=== PATIENT | female | born 1975 | race Caucasian/White ===

== ENCOUNTER 2018-06-10 19:02 | Inpatient (IN) | payer OTHER ==
[2018-06-10] MEDS ORDERED: ONDANSETRON 4 MG INJ IV (22:30)
[2018-06-10] MEDS ORDERED: morphine 2 MG INJ IV (22:30)
[2018-06-10] MEDS: PIPER-TAZO 3.375 GM IV (PMX) 100 ML IVPB (23:51)
[2018-06-10] MEDS: NACL 0.9% 3 ML SYG IV (23:51)
[2018-06-10] MEDS: DEXTROSE 5%-0.45% NACL 1,000 ML IV (23:51)
[2018-06-11 05:18] LABS: ADD MAN DIFF? NO
[2018-06-11 05:22] LABS: WHITE BLOOD COUNT 14.4 10^3/ul (4.8-10.8)
[2018-06-11 05:22] LABS: BASOPHIL # 0.1 10^3/ul (0.0-0.1); BASOPHILS % 0.3 % (0.0-2.0); EOSINOPHILS # 0.1 10^3/ul (0.0-0.5); EOSINOPHILS % 0.6 % (0.0-7.0); HEMATOCRIT 36.6 % (37.0-47.0); LYMPHOCYTES # 2.1 10^3/ul (0.8-2.9); LYMPHOCYTES % 14.8 % (15.0-51.0); MEAN CORPUSCULAR HEMOGLOBIN 27.3 pg (29.0-33.0); MEAN CORPUSCULAR HGB CONC 32.8 g/dl (32.0-37.0); MEAN CORPUSCULAR VOLUME 83.2 fl (82.0-101.0); MEAN PLATELET VOLUME 11.8 fl (7.4-10.4); MONOCYTE # 0.8 10^3/ul (0.3-0.9); MONOCYTES % 5.7 % (0.0-11.0); NEUTROPHIL # 11.2 10^3/ul (1.6-7.5); PLATELET COUNT 260 10^3/UL (140-415); RED CELL DISTRIBUTION WIDTH 13.2 % (11.5-14.5)
[2018-06-11] MEDS ORDERED: DEXTROSE 50% 50 ML SYRINGE IV ×2 (05:30)
[2018-06-11] MEDS ORDERED: GLUCOSE GEL 15 GRAM TUBE BUCCAL (05:30)
[2018-06-11] MEDS ORDERED: GLUCAGON 1 MG INJ IM (05:30)
[2018-06-11] MEDS ORDERED: GLUCOSE GEL 15 GRAM TUBE PO ×2 (05:30)
[2018-06-11 05:48] LABS: ALANINE AMINOTRANSFERASE 20 IU/L (13-69); ALBUMIN 3.8 g/dl (3.3-4.9); ALBUMIN/GLOBULIN RATIO 1.18; ALKALINE PHOSPHATASE 84 IU/L (42-121); ANION GAP 14 (5-13); ASPARTATE AMINO TRANSFERASE 15 IU/L (15-46); BILIRUBIN,INDIRECT 0.5 mg/dl (0-1.1); BILIRUBIN,TOTAL 0.5 mg/dl (0.2-1.3); BLOOD UREA NITROGEN 9 mg/dl (7-20); CALCIUM 8.8 mg/dl (8.4-10.2); CARBON DIOXIDE 24 mmol/L (21-31); CHLORIDE 100 mmol/L (97-110); CHOL/HDL RATIO 2.8 RATIO; CHOLESTEROL 170 mg/dl (100-200); CREATININE 0.49 mg/dl (0.44-1.00); Estimated GFR > 60 mL/min (>60); GLUCOSE 220 mg/dl (70-220); HDL CHOLESTEROL 60 mg/dl (34-88); LDL CHOLESTEROL,CALCULATED 88 mg/dl; LIPASE 36 U/L (23-300); MAGNESIUM 1.7 mg/dl (1.7-2.5); PHOSPHORUS 3.5 mg/dl (2.5-4.9); POTASSIUM 3.9 mmol/L (3.5-5.1); SODIUM 138 mmol/L (135-144); TRIGLYCERIDES 112 mg/dl (0-149)
[2018-06-11] MEDS: PIPER-TAZO 3.375 GM IV (PMX) 100 ML IVPB ×3 (06:12→17:34)
[2018-06-11 06:52] LABS: HEMOGLOBIN A1C 6.6 % (0-5.9)
[2018-06-11] MEDS: INSULIN ASPART [NOVOLOG] 3 ML PEN SC ×3 (08:59→17:00)
[2018-06-11] MEDS: DEXTROSE 5%-0.45% NACL 1,000 ML IV ×2 (09:00→14:46)
[2018-06-11] MEDS ORDERED: HYDROmorphONE 1 MG/5 ML IV SYRINGE IV ×3 (20:00)
[2018-06-11] MEDS ORDERED: DIPHENHYDRAMINE 50 MG INJ IV ×2 (20:00→22:00)
[2018-06-11] MEDS ORDERED: FENTAnyl 50 MCG/ML VIAL IV (20:00)
[2018-06-11] MEDS ORDERED: PROCHLORPERAZINE 10 MG INJ IV (20:00)
[2018-06-11] MEDS ORDERED: hydrALAzine 20 MG INJ IV (20:00)
[2018-06-11] MEDS ORDERED: EPHEDrine SULFATE 50 MG/5 ML SYG IV (20:00)
[2018-06-11] MEDS ORDERED: LABETALOL HCL 20MG INJ IV (20:00)
[2018-06-11] MEDS ORDERED: OXYCODONE/ACETAMINOPHEN (5/325) TAB PO (20:00)
[2018-06-11] MEDS ORDERED: ROCURONIUM 50 MG INJ ×2 (20:02→20:42)
[2018-06-11] MEDS ORDERED: PROPOFOL 20 ML ×2 (20:02→20:24)
[2018-06-11] MEDS ORDERED: SUCCINYLCHOLINE CHLORIDE 100 MG/5 ML SYG IV (20:02)
[2018-06-11] MEDS ORDERED: LIDOCAINE 2% (SDV) 5 ML INJ (20:02)
[2018-06-11] MEDS ORDERED: ROPIVACAINE 0.5 % 30 ML VIAL (20:04)
[2018-06-11] MEDS ORDERED: MIDAZOLAM 1 MG/ML 2 ML INJ (20:04)
[2018-06-11] MEDS ORDERED: FENTAnyl 50 MCG/ML VIAL (20:19)
[2018-06-11] MEDS ORDERED: ONDANSETRON 4 MG INJ (20:32)
[2018-06-11] MEDS ORDERED: FAMOTIDINE 20 MG INJ (20:32)
[2018-06-11] MEDS: LIDOCAINE 1% (MPF) 30 ML INJ (20:52)
[2018-06-11] MEDS: BUPIVACAINE 0.25% (MPF) 30 ML INJ (20:52)
[2018-06-11] MEDS ORDERED: HYDROmorphONE 2 MG/ML SYG (21:05)
[2018-06-11] MEDS ORDERED: SUGAMMADEX SODIUM 200 MG/2 ML VIAL IV ×2 (21:25→21:31)
[2018-06-11] MEDS: D5W-0.45 NACL + KCL 20 MEQ 1,000 ML IV (21:34)
[2018-06-11] MEDS: MEPERIDINE 25 MG INJ IV (21:58)
[2018-06-11] MEDS: ONDANSETRON 4 MG INJ IV (21:59)
[2018-06-11] MEDS ORDERED: ACETAMINOPHEN 325 MG TAB PO (22:00)
[2018-06-11] MEDS ORDERED: ZOLPIDEM 5 MG TAB PO (22:00)
[2018-06-11] MEDS ORDERED: ONDANSETRON 4 MG INJ IV (22:00)
[2018-06-11] MEDS ORDERED: HYDROmorphONE 0.5 MG/0.5 ML SYG IV (22:00)
[2018-06-11] MEDS: FENTAnyl 50 MCG/ML VIAL IV ×3 (22:08→22:25)
[2018-06-12] MEDS: KETOROLAC 30 MG INJ IV ×2 (00:06→09:32)
[2018-06-12] MEDS: PIPER-TAZO 3.375 GM IV (PMX) 100 ML IVPB ×4 (00:06→18:09)
[2018-06-12] MEDS: INSULIN ASPART [NOVOLOG] 3 ML PEN SC ×6 (01:00→18:12)
[2018-06-12] MEDS: ACCU-CHEK XX (02:00)
[2018-06-12 05:24] LABS: ADD MAN DIFF? NO
[2018-06-12 05:32] LABS: BASOPHILS % 0.3 % (0.0-2.0); EOSINOPHILS % 0.1 % (0.0-7.0); HEMATOCRIT 34.3 % (37.0-47.0); HEMOGLOBIN 11.5 g/dl (12.0-16.0); LYMPHOCYTES # 1.8 10^3/ul (0.8-2.9); LYMPHOCYTES % 11.3 % (15.0-51.0); MEAN CORPUSCULAR HEMOGLOBIN 27.9 pg (29.0-33.0); MEAN CORPUSCULAR HGB CONC 33.5 g/dl (32.0-37.0); MEAN CORPUSCULAR VOLUME 83.3 fl (82.0-101.0); MEAN PLATELET VOLUME 11.8 fl (7.4-10.4); MONOCYTE # 0.9 10^3/ul (0.3-0.9); MONOCYTES % 5.4 % (0.0-11.0); NEUTROPHIL # 13.2 10^3/ul (1.6-7.5); NEUTROPHILS % 82.5 % (39.0-77.0); PLATELET COUNT 228 10^3/UL (140-415); RED BLOOD COUNT 4.12 10^6/ul (4.20-5.40); RED CELL DISTRIBUTION WIDTH 13.2 % (11.5-14.5)
[2018-06-12 05:54] LABS: ALANINE AMINOTRANSFERASE 58 IU/L (13-69); ALBUMIN 3.5 g/dl (3.3-4.9); ALBUMIN/GLOBULIN RATIO 1.09; ALKALINE PHOSPHATASE 80 IU/L (42-121); ANION GAP 10 (5-13); ASPARTATE AMINO TRANSFERASE 58 IU/L (15-46); BILIRUBIN,INDIRECT 0.6 mg/dl (0-1.1); BILIRUBIN,TOTAL 0.6 mg/dl (0.2-1.3); BLOOD UREA NITROGEN 8 mg/dl (7-20); CALCIUM 8.4 mg/dl (8.4-10.2); CARBON DIOXIDE 25 mmol/L (21-31); CHLORIDE 102 mmol/L (97-110); CREATININE 0.52 mg/dl (0.44-1.00); Estimated GFR > 60 mL/min (>60); GLUCOSE 230 mg/dl (70-220); POTASSIUM 3.9 mmol/L (3.5-5.1); SODIUM 137 mmol/L (135-144); TOTAL PROTEIN 6.7 g/dl (6.1-8.1)
[2018-06-12] MEDS: PANTOPRAZOLE (EC) 40 MG TAB PO (06:00)
[2018-06-12] MEDS: D5W-0.45 NACL + KCL 20 MEQ 1,000 ML IV ×2 (09:31→17:34)
[2018-06-12] MEDS: HYDROCODONE/APAP (5/325) TAB PO (15:01)
[2018-06-12] MEDS ORDERED: INSULIN ASPART [NOVOLOG] 3 ML PEN SC (20:00)
[2018-06-12] MEDS: Insulin NOVOLOG SS MILD Algorithm (SS with meals and bedtime) SC (20:35)
[2018-06-13] MEDS ORDERED: ACCUCHECK AT 2AM (Patients on SS coverage) XX (02:00)
[2018-06-13] MEDS: ACCU-CHEK XX (02:00)
[2018-06-13] MEDS: PANTOPRAZOLE (EC) 40 MG TAB PO (06:06)
[2018-06-13] MEDS: Insulin NOVOLOG SS MILD Algorithm (SS with meals and bedtime) SC ×2 (09:14→12:46)
[2018-06-13] MEDS: IBUPROFEN 600 MG TAB PO ×2 (09:44→17:02)
== END 2018-06-13 17:00 | disposition home or self-care (01) | DRG 419 ==
LOC: MS1 06-12 03:10
PROC: 0FT44ZZ Resection of Gallbladder, Percutaneous Endoscopic Approach (ICD-10-PCS; principal; 2018-06-11 18:30)
PROC: BF121ZZ Fluoroscopy of Gallbladder using Low Osmolar Contrast (ICD-10-PCS; 2018-06-11 18:30)
DX: K80.12 Calculus of gallbladder with acute and chronic cholecystitis without obstruction (principal); E11.9 Type 2 diabetes mellitus without complications; K82.A1 Gangrene of gallbladder in cholecystitis; I10 Essential (primary) hypertension; Z79.4 Long term (current) use of insulin
CPT/HCPCS: 78226; 80053; 80061; 82962; 83036; 83690; 83735; 84100; 85025; 88304